=== PATIENT | male | born 1985 | race Hispanic/Latino ===

== ENCOUNTER 2018-02-08 10:51 | Emergency (ER) | payer SELFPAY ==
[2018-02-08] MEDS ORDERED: TETANUS & DIPHTHERIA TOX,ADULT 0.5 ML VIAL ONE (15:41)
[2018-02-08] MEDS ORDERED: LIDOCAINE 1% 20 ML MDV ONE (15:41)
--- NOTE | 2018-02-08 16:55 | ER ---
Nurse's Notes [facility] Name: Vincent Leonard Age: 32 yrs Sex: Male : 1985 Arrival Date: 02/08/2018 Time: 10:52 Bed 11 Private MD: None, None Diagnosis: Laceration without foreign body of right forearm Presentation: 02/08 11:08 Presenting complaint: Patient states: Lacerated right forearm today. Patient reports aj slow constant bleeding. Transition of care: patient was not received from another setting of care. Complicating Factors: There are no complicating factors for this patient. Onset of symptoms was February 08, 2018. Care prior to arrival: None. 11:08 Method Of Arrival: Ambulatory aj 11:08 Acuity: HOSEA 4 aj 14:45 Risk Assessment: Do you want to hurt yourself or someone else? Patient reports no aa5 desire to harm self or others. Initial Sepsis Screen: Does the patient meet any 2 criteria? No. Patient's initial sepsis screen is negative. Does the patient have a suspected source of infection? No. Patient's initial sepsis screen is negative. Triage Assessment: 11:09 General: Appears in no apparent distress. comfortable, Behavior is calm, cooperative, aj appropriate for age. Pain: Complains of pain in palmar aspect of right forearm. Neuro: Level of Consciousness is awake, alert, obeys commands, Oriented to person, place, time, situation, Appropriate for age. Respiratory: Airway is patent Respiratory effort is even, unlabored, Respiratory pattern is regular, symmetrical. Derm: Skin is intact, is healthy with good turgor, Skin is pink, warm \\T\\ dry. normal. Injury Description: Laceration sustained to palmar aspect of right forearm is 0.5 to 2.5 cm long, bleeding moderately. Historical: - Allergies: 11:09 No Known Allergies; aj - Home Meds: 11:09 None [Active]; aj - PMHx: 11:09 None; aj - PSHx: 11:09 None; aj - Immunization history:: Last tetanus immunization: up to date. - Social history:: Smoking status: Patient/guardian denies using tobacco. - Ebola Screening: : No symptoms or risks identified at this time. Screenin:45 Abuse screen: Denies threats or abuse. Nutritional screening: No deficits noted. aa5 Tuberculosis screening: No symptoms or risk factors identified. Fall Risk None identified. Assessment: 14:45 General: Appears comfortable, Behavior is calm, cooperative. Pain: Complains of pain in aa5 right forearm Pain currently is 5 out of 10 on a pain scale. Pain began 1 day ago. Neuro: Level of Consciousness is awake, alert, obeys commands, Oriented to person, place, time, situation. Cardiovascular: Heart tones S1 S2 present Rhythm is regular. Respiratory: Airway is patent Respiratory effort is even, unlabored, Respiratory pattern is regular, symmetrical. GI: No signs and/or symptoms were reported involving the gastrointestinal system. : No signs and/or symptoms were reported regarding the genitourinary system. EENT: No signs and/or symptoms were reported regarding the EENT system. Derm: Skin is pink, warm \\T\\ dry. Musculoskeletal: Range of motion: intact in all extremities. Injury Description: Laceration sustained to right forearm is clean, 0.5 to 2.5 cm long, bleeding moderately, was sustained 1 day ago. Pt states "I cut my arm with a plate at work". 15:45 Reassessment: Patient appears in no apparent distress at this time. No changes from sv previously documented assessment. Patient and/or family updated on plan of care and expected duration. Pain level reassessed. Patient is alert, oriented x 3, equal unlabored respirations, skin warm/dry/pink. Vital Signs: 11:09 BP 143 / 79; Pulse 72; Resp 20; Temp 97.5; Pulse Ox 99% on R/A; Weight 49.9 kg; Height aj 5 ft. 1 in. (154.94 cm); 11:09 Body Mass Index 20.78 (49.90 kg, 154.94 cm) aj ED Course: 10:52 Patient arrived in ED. mr 10:52 None, None is Private Physician. mr 11:09 Triage completed. aj 11:09 Arm band placed on left wrist. Patient placed in an exam room. aj 14:51 Sonya Cantor, LISSETTE is Primary Nurse. aa5 15:05 Román Ram NP is PHCP. pm1 15:05 Donald Espinoza MD is Attending Physician. pm1 15:45 Patient has correct armband on for positive identification. sv 15:47 X-ray completed. Portable x-ray completed in exam room. Patient tolerated procedure kc2 well. 15:49 Forearm Right XRAY In Process Unspecified. EDMS 16:45 Assist provider with laceration repair on palmar aspect of right forearm that was 2.5 sv cm. or less using sutures. Set up tray. Performed by Román Ram NP Patient tolerated well. 17:05 Patient did not have IV access during this emergency room visit. Dressings: Band aid x sv 1 palmar aspect of right forearm with neosporin. 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 Exp: sv 04/19/2020. Lot #: [id number]. } Route: IM; Site: left deltoid; 17:17 Follow up: Response: No adverse reaction sv 17:17 Drug: Ibuprofen 600 mg Route: PO; sv 17:17 Follow up: Response: Medication administered at discharge. sv Outcome: 16:54 Discharge ordered by MD. pm1 17:17 Patient left the ED. sv 17:17 Discharged to home ambulatory. sv 17:17 Condition: stable 17:17 Discharge instructions given to patient, Instructed on discharge instructions, follow up and referral plans. medication usage, wound care, Demonstrated understanding of instructions, follow-up care, medications, wound care, Prescriptions given X 3. Signatures: Dispatcher [employer] EDPat Anaya RN RN sv Myers, Amanda, RN RN aj Rivera, Maria mr Calderon, Audri, RN RN aa5 Marinas, Patrick, NP SOCIAL WORKER ASSISTANT pm1 Joselyn Love kc2
--- NOTE | 2018-02-08 16:55 | EDPHYS ---
Physician Documentation [facility] Name: Vincent Leonard Age: 32 yrs Sex: Male : 1985 Arrival Date: 02/08/2018 Time: 10:52 Bed 11 Private MD: None, None ED Physician Donald Espinoza HPI: 02/08 16:00 This 32 yrs old Male presents to ER via Ambulatory with complaints of pm1 Laceration To Arm. 16:00 The patient has a laceration occurred at home, and there are no complicating factors. pm1 The injury was accidental. The laceration(s) is(are) located on the palmar aspect of right forearm. Onset: The symptoms/episode began/occurred today. Associated signs and symptoms: Pertinent negatives: deformity, numbness distal to injury, suspected foreign body. The patient has not experienced similar symptoms in the past. accidental laceration to right forearm with broken plate.. Historical: - Allergies: 11:09 No Known Allergies; aj - Home Meds: 11:09 None [Active]; aj - PMHx: 11:09 None; aj - PSHx: 11:09 None; aj - Immunization history:: Last tetanus immunization: up to date. - Social history:: Smoking status: Patient/guardian denies using tobacco. - Ebola Screening: : No symptoms or risks identified at this time. ROS: 16:00 Constitutional: Negative for fever, chills, and weight loss, Eyes: Negative for injury, pm1 pain, redness, and discharge, ENT: Negative for injury, pain, and discharge, Neck: Negative for injury, pain, and swelling, Cardiovascular: Negative for chest pain, palpitations, and edema, Respiratory: Negative for shortness of breath, cough, wheezing, and pleuritic chest pain, Abdomen/GI: Negative for abdominal pain, nausea, vomiting, diarrhea, and constipation, Back: Negative for injury and pain, MS/Extremity: Negative for injury and deformity. 16:00 Neuro: Negative for headache, weakness, numbness, tingling, and seizure. 16:00 Skin: Positive for laceration(s), of the palmar aspect of right forearm. Exam: 16:00 Constitutional: This is a well developed, well nourished patient who is awake, alert, pm1 and in no acute distress. Head/Face: Normocephalic, atraumatic. Chest/axilla: Normal chest wall appearance and motion. Nontender with no deformity. No lesions are appreciated. Cardiovascular: Regular rate and rhythm with a normal S1 and S2. No gallops, murmurs, or rubs. Normal PMI, no JVD. No pulse deficits. Respiratory: Lungs have equal breath sounds bilaterally, clear to auscultation and percussion. No rales, rhonchi or wheezes noted. No increased work of breathing, no retractions or nasal flaring. Abdomen/GI: Soft, non-tender, with normal bowel sounds. No distension or tympany. No guarding or rebound. No evidence of tenderness throughout. Back: No spinal tenderness. No costovertebral tenderness. Full range of motion. 16:00 Skin: injury, laceration(s), the wound is approximately 3 cm(s), of the palmar aspect of right forearm, that can be described as clean, no foreign body, irregular, with mild bleeding. Vital Signs: 11:09 BP 143 / 79; Pulse 72; Resp 20; Temp 97.5; Pulse Ox 99% on R/A; Weight 49.9 kg; Height aj 5 ft. 1 in. (154.94 cm); 11:09 Body Mass Index 20.78 (49.90 kg, 154.94 cm) aj Laceration: 16:53 Wound Repair of 3cm ( 1.2in ) subcutaneous laceration to palmar aspect of right pm1 forearm. Irregularly shaped.. Distal neuro/vascular/tendon intact. Anesthesia: Local anesthetic administered with 2 mls of 1% lidocaine. Wound prep: Extensive cleansing by me, Wound irrigation by me, Wound explored extensively, Copious irrigation. Skin closed with 5 4-0 Prolene using simple sutures and sterile technique. Dressed with Neosporin, 4x4's, Kerlix. Patient tolerated well. MDM: 15:31 Patient medically screened. pm1 16:53 Data reviewed: vital signs. Data interpreted: Pulse oximetry: on room air is 99 %. pm1 Interpretation: normal. Counseling: I had a detailed discussion with the patient and/or guardian regarding: the historical points, exam findings, and any diagnostic results supporting the discharge/admit diagnosis, radiology results, the need for outpatient follow up, to return to the emergency department if symptoms worsen or persist or if there are any questions or concerns that arise at home. 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 Exp: sv 04/19/2020. Lot #: [id number]. } Route: IM; Site: left deltoid; 17:17 Follow up: Response: No adverse reaction sv 17:17 Drug: Ibuprofen 600 mg Route: PO; sv 17:17 Follow up: Response: Medication administered at discharge. sv Disposition: 19:18 Co-signature as Attending Physician, Donald Espinoza MD I agree with the assessment and kdr plan of care. Disposition: 02/08/18 16:54 Discharged to Home. Impression: Laceration without foreign body of right forearm. - Condition is Stable. - Discharge Instructions: Laceration Care, Adult. - Prescriptions for Keflex 500 mg Oral Capsule - take 1 capsule by ORAL route every 12 hours for 10 days; 20 capsule. Bactrim DS 800- 160 mg Oral Tablet - take 1 tablet by ORAL route every 12 hours for 10 days; 20 tablet. Naprosyn 500 mg Oral Tablet - take 1 tablet by ORAL route 2 times per day take with food; 30 tablet. - Medication Reconciliation Form, Thank You Letter, Antibiotic Education, Prescription Opioid Use form. - Follow up: Emergency Department; When: As needed; Reason: Worsening of condition. Follow up: Private Physician; When: 7 - 10 days; Reason: Recheck today's complaints, Continuance of care, Staple/Suture removal, Re-evaluation by your physician. - Problem is new. - Symptoms have improved. Signatures: Dispatcher [employer] Pat Whitlock RN RN sv Myers, Amanda, RN RN aj Rittger, Kevin, MD MD kdr Marinas, Patrick, NP LOAN AND CREDIT MANAGER pm1 Corrections: (The following items were deleted from the chart) 17:17 16:54 02/08/2018 16:54 Discharged to Home. Impression: Laceration without foreign body sv of right forearm. Condition is Stable. Forms are Medication Reconciliation Form, Thank You Letter, Antibiotic Education, Prescription Opioid Use. Follow up: Emergency Department; When: As needed; Reason: Worsening of condition. Follow up: Private Physician; When: 7 - 10 days; Reason: Recheck today's complaints, Continuance of care, Staple/Suture removal, Re-evaluation by your physician. Problem is new. Symptoms have improved. pm1
[2018-02-08] MEDS ORDERED: IBUPROFEN 200 MG TAB PO ONE (17:02)
[2018-02-08] MEDS ORDERED: IBUPROFEN 400 MG TAB ONE (17:02)
--- NOTE | 2018-02-08 17:12 | RAD REPORT ---
EXAM DESCRIPTION: RAD - Forearm Right - 02/08/2018 3:48 pm CLINICAL HISTORY: Trauma, laceration. COMPARISON: None. FINDINGS: Soft tissue laceration is seen along the ulnar aspect of the distal forearm. No underlying fracture, dislocation or foreign body.
== END 2018-02-08 17:17 | disposition home or self-care (01) ==
LOC: ER 10:51
PROC: 0JQG0ZZ Repair Right Lower Arm Subcutaneous Tissue and Fascia, Open Approach (ICD-10-PCS; principal; 2018-02-08)
DX: S51.811A Laceration without foreign body of right forearm, initial encounter (principal); W26.8XXA Contact with other sharp object(s), not elsewhere classified, initial encounter; Y93.9 Activity, unspecified; Y92.000 Kitchen of unspecified non-institutional (private) residence as the place of occurrence of the external cause; Z23 Encounter for immunization
CPT/HCPCS: 90714; 99284